=== PATIENT | female | born 1995 | race American Indian/Alaskan Native ===

== ENCOUNTER 2017-05-21 17:01 | Emergency (ER) | payer BC ==
[2017-05-21 17:09] VITALS: BP 123/72
--- NOTE | 2017-05-21 17:27 | Emergency Department Report ---
ED General Adult HPI - General Chief complaint: Urogenital-Female Stated complaint: VAGINAL ACCIDENT Time Seen by Provider: 05/21/17 17:06 Source: patient Mode of arrival: Ambulatory Limitations: No Limitations - History of Present Illness Initial comments: PT c/o being on her menstrual cycle. PT states she did not have a tampon or pad and earlier today, she balled up baby wipes and inserted them into her vagina. PT states she can not get it out. PT c/o vaginal discomfort. PT also states that she needed a spider bite drained before and she was given antibiotics. PT states she never finished the antibiotics and she has had other spots pop up. MD Complaint: vaginal fb -: Sudden, hour(s) Location: genitals Severity scale (0 -10): 0 Improves with: none Worsens with: none Associated Symptoms: rash. denies: fever/chills, loss of appetite, nausea/ vomiting - Related Data Previous Rx's Medication Instructions Recorded Last Taken Type Amoxicillin [Amoxicillin TAB] 875 mg PO BID #20 tablet 03/22/14 Unknown Rx Butalb/Acetamin/Caff 50-325-40 1 each PO Q4H PRN #10 tablet 03/22/14 Unknown Rx [Fioricet] Fluticasone Propionate [Flonase] 2 spray NS QDAY #1 spray.susp 03/22/14 Unknown Rx Ibuprofen [Motrin 600 MG tab] 600 mg PO Q8H PRN #30 tablet 03/22/14 Unknown Rx Allergies Allergy/AdvReac Type Severity Reaction Status Date / Time No Known Allergies Allergy Unverified 03/22/14 15:56 ED Review of Systems ROS: Stated complaint: VAGINAL ACCIDENT Other details as noted in HPI Comment: All other systems reviewed and negative Constitutional: denies: chills, fever Respiratory: denies: cough, shortness of breath Genitourinary: as per HPI. denies: abnormal menses Skin: rash ED Past Medical Hx - Past Medical History Previous Medical History?: No - Surgical History Past Surgical History?: No - Social History Smoking Status: Never Smoker Substance Use Type: None - Medications Home Medications: Home Medications Medication Instructions Recorded Confirmed Last Taken Type Amoxicillin [Amoxicillin TAB] 875 mg PO BID #20 tablet 03/22/14 Unknown Rx Butalb/Acetamin/Caff 50-325-40 1 each PO Q4H PRN #10 tablet 03/22/14 Unknown Rx [Fioricet] Fluticasone Propionate [Flonase] 2 spray NS QDAY #1 spray.susp 03/22/14 Unknown Rx Ibuprofen [Motrin 600 MG tab] 600 mg PO Q8H PRN #30 tablet 03/22/14 Unknown Rx ED Physical Exam - General Limitations: No Limitations General appearance: alert, in no apparent distress - Head Head exam: Present: atraumatic, normocephalic, normal inspection - Eye Eye exam: Present: normal appearance. Absent: conjunctival injection - ENT ENT exam: Present: normal exam, normal external ear exam - Neck Neck exam: Present: normal inspection - Respiratory Respiratory exam: Present: normal lung sounds bilaterally. Absent: respiratory distress, chest wall tenderness - Cardiovascular Cardiovascular Exam: Present: regular rate, normal rhythm, normal heart sounds - GI/Abdominal GI/Abdominal exam: Present: soft. 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 Absent: normal speculum exam Bi-manual exam: Present: normal bi-manual exam. Absent: uterine enlargement, uterine tenderness - Extremities Exam Extremities exam: Present: normal inspection, full ROM - Back Exam Back exam: Present: normal inspection, full ROM - Neurological Exam Neurological exam: Present: alert, oriented X3, normal gait - Psychiatric Psychiatric exam: Present: normal affect, normal mood - Skin Skin exam: Present: warm, dry, intact, other (PT has scars to her abd and brook axilla. pt states those places were risens, no active infection noted. ) ED Course Vital Signs 05/21/17 17:06 Temperature 98.6 F Pulse Rate 78 Respiratory 20 Rate Blood Pressure 123/72 O2 Sat by Pulse 100 Oximetry - Procedure Description Procedures done: vaginal fb removed with metal round forcepts. PT does have vaginal bleeding noted. it appears all of the fb has been removed. PT tolerated the procedure well. without complications - Pulse Oximetry Interpretation Digit-Finger Initial Pulse Oximetry Readin Actions Taken: none ED Medical Decision Making - Differential Diagnosis fb, abscess, Critical care attestation.: If time is entered above; I have spent that time in minutes in the direct care of this critically ill patient, excluding procedure time. ED Disposition Clinical Impression: Hx of abscess of skin and subcutaneous tissue Vaginal foreign body Qualifiers: Encounter type: initial encounter Qualified Code(s): T19.2XXA - Foreign body in vulva and vagina, initial encounter Disposition: TO HOME OR SELFCARE Is pt being admited?: No Does the pt Need Aspirin: No Condition: Stable Instructions: Vaginal Foreign Body (ED), Abscess (ED) Additional Instructions: Wash with OTC Hibiclens No shaving Follow up with FIELD REPRESENTATIVES DIRECTOR Return to ed if worsening or concerns Referrals: PRIMARY CARE, [Primary Care Provider] - 3-5 Days Forms: Work/School Release Form(ED) Time of Disposition: 17:34
== END 2017-05-21 18:05 | disposition home or self-care (01) ==
LOC: ED 17:01
DX: T19.2XXA Foreign body in vulva and vagina, initial encounter (principal); X58.XXXA Exposure to other specified factors, initial encounter; Y93.89 Activity, other specified; Y99.8 Other external cause status; Y92.89 Other specified places as the place of occurrence of the external cause
CPT/HCPCS: 99283

== ENCOUNTER 2017-07-31 10:25 | Emergency (ER) | payer BC ==
[2017-07-31 11:00] VITALS: BP 104/78
[2017-07-31 12:32] LABS: Bacteria,Urine 1+ /HPF (Negative); Bilirubin,Urine NEG (Negative); Blood,Urine SM (Negative); Ketones,Urine NEG (Negative); Leukocyte Esterase,Urine LG (Negative); Mucus,Urine 3+ /HPF; Nitrite,Urine NEG (Negative); Protein,Urine <15 mg/dL mg/dL (Negative); Urobilinogen,Urine < 2.0 mg/dL (<2.0)
[2017-07-31] MEDS ORDERED: ROCEPHIN IM ONE (16:26)
[2017-07-31] MEDS ORDERED: XYLOCAINE 1% MPF 5 mL INFILTRATI ONE (16:26)
[2017-07-31] MEDS ORDERED: ZITHROMAX PO ONE (16:27)
--- NOTE | 2017-07-31 18:31 | Emergency Department Report ---
Entered by AMAURI TRIPATHI, acting as scribe for REGINA SANDERSON PA. ED Female HPI - General Chief complaint: Urogenital-Female Stated complaint: VAG DISCHARGE/IRRITATION Time Seen by Provider: 07/31/17 15:15 Source: patient Mode of arrival: Ambulatory Limitations: No Limitations - History of Present Illness Initial comments: 21 y/o female with a PMHx of genital herpes presents to the ED c/o white, thick vaginal discharge that began last night. Patient reports associated vaginal irritation, but she denies any abdominal pain, nausea, vomiting, dysuria, urinary urgency and frequency, vaginal bleeding, rash, fever, and chills. Patient states that she is currently sexually active with 2 partners without protection. LMP 07/08/2017. NKDA. SERRANO Complaint: vaginal discharge -: Last night Severity: mild Severity scale (0 -10): 0 Consistency: constant Improves with: none Worsens with: none Are you Now?: No Last Menstrual Period: 07/08/17 EDC: 04/14/18 Associated Symptoms: denies other symptoms, vaginal discharge (white thick), other (vaginal irritation). denies: vaginal bleeding, abdominal pain, nausea/ vomiting, fever/chills, headaches, loss of appetite, dysuria, hematuria, rash, seizure, shortness of breath, syncope, weakness - Related Data Sexually active: Yes (2 partners without protection) Previous Rx's Medication Instructions Recorded Last Taken Type Fluticasone Propionate [Flonase] 2 spray NS QDAY #1 spray.susp 03/22/14 Unknown Rx Ibuprofen [Motrin 600 MG tab] 600 mg PO Q8H PRN #30 tablet 03/22/14 Unknown Rx metroNIDAZOLE [Flagyl] 500 mg PO Q12HR #14 tab 05/21/17 Unknown Rx Clotrimazole [Rkxf-Srxztceo-0] 1 applicator VG QHS #1 cream.appl 07/31/17 Unknown Rx Nitrofurantoin Childress/M-Cryst 100 mg PO Q12HR #14 capsule 07/31/17 Unknown Rx [Macrobid CAP] Allergies Allergy/AdvReac Type Severity Reaction Status Date / Time No Known Allergies Allergy Unverified 03/22/14 15:56 ED Review of Systems Comment: All other systems reviewed and negative Constitutional: denies: chills, fever Eyes: denies: eye pain, eye discharge, vision change ENT: denies: ear pain, throat pain Respiratory: denies: cough, orthopnea, shortness of breath, SOB with exertion, SOB at rest, stridor, wheezing Cardiovascular: denies: chest pain, palpitations, dyspnea on exertion, orthopnea , edema, syncope, paroxysmal nocturnal dyspnea Endocrine: no symptoms reported Gastrointestinal: denies: abdominal pain, nausea, vomiting, diarrhea Genitourinary: discharge (white thick). denies: urgency, dysuria, frequency, hematuria, abnormal menses, dyspareunia Musculoskeletal: denies: back pain, joint swelling, arthralgia Skin: denies: rash, lesions Neurological: denies: headache, weakness, numbness, paresthesias Psychiatric: denies: anxiety, depression Hematological/Lymphatic: denies: easy bleeding, easy bruising ED Past Medical Hx - Past Medical History Previous Medical History?: Yes Additional medical history: Genital Herpes - Surgical History Past Surgical History?: No - Family History Family history: no significant - Social History Smoking Status: Current Every Day Smoker Substance Use Type: None - Medications Home Medications: Home Medications Medication Instructions Recorded Confirmed Last Taken Type Fluticasone Propionate [Flonase] 2 spray NS QDAY #1 spray.susp 03/22/14 Unknown Rx Ibuprofen [Motrin 600 MG tab] 600 mg PO Q8H PRN #30 tablet 03/22/14 Unknown Rx metroNIDAZOLE [Flagyl] 500 mg PO Q12HR #14 tab 05/21/17 Unknown Rx Clotrimazole [Wcfw-Zvornpwn-9] 1 applicator VG QHS #1 cream.appl 07/31/17 Unknown Rx Nitrofurantoin Childress/M-Cryst 100 mg PO Q12HR #14 capsule 07/31/17 Unknown Rx [Macrobid CAP] ED Physical Exam - General Limitations: No Limitations General appearance: alert, in no apparent distress - Head Head exam: Present: atraumatic, normocephalic - Eye Eye exam: Present: normal appearance, PERRL, EOMI Pupils: Present: normal accommodation - ENT ENT exam: Present: normal exam, mucous membranes moist, normal external ear exam - Neck Neck exam: Present: normal inspection, full ROM. Absent: tenderness, meningismus, lymphadenopathy - Respiratory Respiratory exam: Present: normal lung sounds bilaterally. Absent: respiratory distress, wheezes, rales, rhonchi, stridor, accessory muscle use, decreased breath sounds - Cardiovascular Cardiovascular Exam: Present: regular rate, normal rhythm, normal heart sounds. Absent: systolic murmur, diastolic murmur - GI/Abdominal GI/Abdominal exam: Present: soft, normal bowel sounds. Absent: distended, tenderness, guarding, rebound, rigid - Extremities Exam Extremities exam: Present: normal inspection, full ROM, normal capillary refill - Back Exam Back exam: Present: normal inspection, full ROM. Absent: tenderness, CVA tenderness (R), CVA tenderness (L) - Neurological Exam Neurological exam: Present: alert, oriented X3, normal gait - Psychiatric Psychiatric exam: Present: normal affect, normal mood - Skin Skin exam: Present: warm, dry, intact. Absent: rash ED Course Vital Signs 07/31/17 10:57 Temperature 99.1 F Pulse Rate 70 Respiratory 16 Rate Blood Pressure 104/78 O2 Sat by Pulse 100 Oximetry ED Medical Decision Making - Medical Decision Making A/P: Vaginal discharge, cervicitis 1-treatment with azithromycin and ceftriaxone 2-GC cultures sent 3-wet prep shows no Trichomonas or yeast no beefy ED Disposition Clinical Impression: Vaginal discharge Disposition: DC-01 TO HOME OR SELFCARE Is pt being admited?: No Does the pt Need Aspirin: No Condition: Stable Instructions: Cervicitis (ED) Prescriptions: Clotrimazole [Tqbi-Ayosqerf-2] 1 applicator VG QHS #1 cream.appl Nitrofurantoin Childress/M-Cryst [Macrobid CAP] 100 mg PO Q12HR #14 capsule Referrals: [facility] [Provider Group] - 3-5 Days Forms: Work/School Release Form(ED) Time of Disposition: 16:36 This documentation as recorded by the DEUCE robertson JASMINE,accurately reflects the service I personally performed and the decisions made by me,REGINA SANDERSON PA.
== END 2017-07-31 17:08 | disposition home or self-care (01) ==
LOC: ED 10:25
DX: N89.8 Other specified noninflammatory disorders of vagina (principal); F17.200 Nicotine dependence, unspecified, uncomplicated
CPT/HCPCS: 81001; 81025; 87210; 87591; 96372; 99283; J0696

== ENCOUNTER 2018-04-20 21:57 | Emergency (ER) | payer BC ==
[2018-04-20 23:10] VITALS: BP 118/64
[2018-04-20 23:56] LABS: Bacteria,Urine 4+ /HPF (Negative); Bilirubin,Urine NEG (Negative); Blood,Urine LG (Negative); Color,Urine Yellow (Yellow); HCG Qualitative,Urine Negative (Negative); Mucus,Urine 1+ /HPF; RBC,Urine > 182.0 /HPF (0.0-6.0); Urobilinogen,Urine < 2.0 mg/dL (<2.0)
[2018-04-21] MEDS ORDERED: ZITHROMAX PO ONE (00:57)
[2018-04-21] MEDS ORDERED: FLAGYL PO ONE ×2 (00:57→00:58)
[2018-04-21] MEDS ORDERED: ULTRAM PO ONE (00:57)
[2018-04-21] MEDS ORDERED: XYLOCAINE 1% MPF 5 mL INFILTRATI ONE (00:57)
[2018-04-21] MEDS ORDERED: ROCEPHIN IM ONE (00:57)
--- NOTE | 2018-04-21 02:34 | Emergency Department Report ---
HPI - General Chief Complaint: Urogenital-Female Time Seen by Provider: 04/21/18 00:53 - HPI HPI: The patient's 22-year-old female who presents for evaluation of abdominal pain. The patient reports left lower quadrant extremity with abdominal pain for the past one to 2 days, cramping in quality, mild in severity, exacerbated with urination. The patient denies fever, chills, night sweats, diarrhea, blood in the stool, dark tarry stool, hematuria, flank pain, genital discharge, inability to pass flatus. ED Past Medical Hx - Past Medical History Previous Medical History?: No Additional medical history: Genital Herpes - Surgical History Past Surgical History?: No - Social History Smoking Status: Never Smoker - Medications Home Medications: Home Medications Medication Instructions Recorded Confirmed Last Taken Type Fluticasone Propionate [Flonase] 2 spray NS QDAY #1 spray.susp 03/22/14 Unknown Rx Ibuprofen [Motrin 600 MG tab] 600 mg PO Q8H PRN #30 tablet 03/22/14 Unknown Rx metroNIDAZOLE [Flagyl] 500 mg PO Q12HR #14 tab 05/21/17 Unknown Rx Clotrimazole [Heeh-Ywylsmxu-4] 1 applicator VG QHS #1 cream.appl 07/31/17 Unknown Rx Nitrofurantoin Cassia/M-Cryst 100 mg PO Q12HR #14 capsule 07/31/17 Unknown Rx [Macrobid CAP] Fluconazole [Diflucan TAB] 150 mg PO ONCE #1 tablet 04/21/18 Unknown Rx Ibuprofen [Motrin] 800 mg PO Q8HR PRN #15 tablet 04/21/18 Unknown Rx metroNIDAZOLE [Flagyl] 500 mg PO Q12HR #14 tab 04/21/18 Unknown Rx traMADol [Ultram 50 MG tab] 50 mg PO Q6HR PRN #15 tablet 04/21/18 Unknown Rx ED Review of Systems ROS: Stated complaint: VAG D/C WITH ODOR Other details as noted in HPI Constitutional: denies: fever ENT: denies: throat or neck pain Respiratory: denies: cough, shortness of breath Cardiovascular: denies: chest pain Endocrine: denies unexplained weight loss or gain Gastrointestinal: reports: abdominal pain, nausea Genitourinary: reports: dysuria Musculoskeletal: denies: leg swelling Skin: denies: rash Neurological: denies: headache Hematological/Lymphatic: denies: easy bleeding or easy bruising Psych: denies sadness or hopelessness Physical Exam - Physical Exam Vital Signs: Vital Signs 04/20/18 22:53 Temperature 98.4 F Pulse Rate 84 Respiratory 18 Rate Blood Pressure 118/64 O2 Sat by Pulse 100 Oximetry Physical Exam: General: well-nourished, well-developed, no acute distress Head: Normocephalic, atraumatic Eyes: normal sclera ENT: Mucous membranes are pink and moist Neck: trachea midline, neck supple, No neck stiffness, no cervical adenopathy Respiratory: Breath sounds equal bilaterally, no wheezing, rales, or rhonchi Cardio: S1 and S2 present, no murmurs, rubs, gallops, capillary refill is brisk Abdomen: Normoactive bowel sounds, soft abdomen, suprapubic tenderness to palpation present, no rigidity, no guarding or rebound tenderness Musc: No pitting edema Skin: No rash Neuro: no facial drooping, normal speech Psych: Normal affect ED Course Vital Signs 04/20/18 22:53 Temperature 98.4 F Pulse Rate 84 Respiratory 18 Rate Blood Pressure 118/64 O2 Sat by Pulse 100 Oximetry ED Medical Decision Making - Medical Decision Making The patient was seen and examined by myself. The patient is given pain medicine. Urinalysis reveals elevated urine wbc with positive leukocyte esterase, consistent with acute urinary tract infection. UA was negative for preg. The patient was given antibiotic for treatment of cervicitis and UTI. The patient was reevaluated and reported that their symptoms were markedly improved. The patient is stable for discharge with outpatient follow-up. The patient is given follow-up and return instructions. The patient expressed understanding and agreed with the plan. The patient is discharged in stable condition. Critical care attestation.: If time is entered above; I have spent that time in minutes in the direct care of this critically ill patient, excluding procedure time. ED Disposition Clinical Impression: Acute abdominal pain in left lower quadrant, Acute lower UTI (urinary tract infection), Exposure to STD Disposition: - TO HOME OR SELFCARE Is pt being admited?: No Does the pt Need Aspirin: No Condition: Stable Instructions: Urinary Tract Infection in Women (ED), Safe Sex (ED), Sexually Transmitted Diseases (ED), Chlamydia Infection (ED), Trichomoniasis (ED), Cervicitis (ED) Referrals: PRIMARY CARE, [Primary Care Provider] - 3-5 Days DAR RONQUILLO MD [Staff Physician] - 3-5 Days Forms: Work/School Release Form(ED) Time of Disposition: 01:15
== END 2018-04-21 01:55 | disposition home or self-care (01) ==
LOC: ED 21:57
DX: N39.0 Urinary tract infection, site not specified (principal); Z20.2 Contact with and (suspected) exposure to infections with a predominantly sexual mode of transmission
CPT/HCPCS: 81001; 81025; 96372; 99283; J0696

== ENCOUNTER 2019-10-15 14:30 | Emergency (ER) | payer BC ==
[2019-10-15 14:37] VITALS: BP 109/58
[2019-10-15 15:47] LABS: Bilirubin,Urine NEG (Negative); Blood,Urine SM (Negative); Color,Urine Yellow (Yellow); Mucus,Urine 2+ /HPF; Protein,Urine <15 mg/dL mg/dL (Negative); Urobilinogen,Urine < 2.0 mg/dL (<2.0)
[2019-10-15 15:48] LABS: HCG Qualitative,Urine Positive (Negative)
--- NOTE | 2019-10-15 16:25 | Emergency Department Report ---
<BURT NARANJO - Last Filed: 10/15/19 17:53> ED Female HPI - General Chief complaint: Abdominal Pain Stated complaint: /CRAMPING Time Seen by Provider: 10/15/19 16:10 Source: patient Mode of arrival: Ambulatory Limitations: No Limitations - History of Present Illness Initial comments: Chief complaint "I'm . I have been cramping. Afshin is a very pleasant 24-year-old who presents with positive Brixey test. Last menstrual period 09/10/2019. She's had in the minimal abdominal cramping. No vaginal bleeding. Mild cramps. Positive home urine test. -: Gradual, week(s) (several) Severity: mild Severity scale (0 -10): 5 Quality: cramping Consistency: intermittent, now resolved Improves with: none Worsens with: none Are you Now?: Yes Last Menstrual Period: 09/10/19 EDC: 06/16/20 - Related Data Previous Rx's Medication Instructions Recorded Last Taken Type Fluticasone Propionate [Flonase] 2 spray NS QDAY #1 spray.susp 03/22/14 Unknown Rx Ibuprofen [Motrin 600 MG tab] 600 mg PO Q8H PRN #30 tablet 03/22/14 Unknown Rx metroNIDAZOLE [Flagyl] 500 mg PO Q12HR #14 tab 05/21/17 Unknown Rx Clotrimazole [Mlrb-Ecjsxexh-6] 1 applicator VG QHS #1 cream.appl 07/31/17 Unknown Rx Nitrofurantoin Thurston/M-Cryst 100 mg PO Q12HR #14 capsule 07/31/17 Unknown Rx [Macrobid CAP] Fluconazole [Diflucan TAB] 150 mg PO ONCE #1 tablet 04/21/18 Unknown Rx Ibuprofen [Motrin] 800 mg PO Q8HR PRN #15 tablet 04/21/18 Unknown Rx metroNIDAZOLE [Flagyl] 500 mg PO Q12HR #14 tab 04/21/18 Unknown Rx traMADoL [Ultram 50 MG tab] 50 mg PO Q6HR PRN #15 tablet 04/21/18 Unknown Rx Allergies Allergy/AdvReac Type Severity Reaction Status Date / Time No Known Allergies Allergy Unverified 03/22/14 15:56 ED Review of Systems Comment: All other systems reviewed and negative Constitutional: denies: fever, malaise Gastrointestinal: abdominal pain. denies: nausea, vomiting, diarrhea ED Past Medical Hx - Past Medical History Previous Medical History?: Yes Additional medical history: Genital Herpes - Surgical History Past Surgical History?: No - Social History Smoking Status: Never Smoker Substance Use Type: None - Medications Home Medications: Home Medications Medication Instructions Recorded Confirmed Last Taken Type Fluticasone Propionate [Flonase] 2 spray NS QDAY #1 spray.susp 03/22/14 Unknown Rx Ibuprofen [Motrin 600 MG tab] 600 mg PO Q8H PRN #30 tablet 03/22/14 Unknown Rx metroNIDAZOLE [Flagyl] 500 mg PO Q12HR #14 tab 05/21/17 Unknown Rx Clotrimazole [Elbq-Jfrarjpc-1] 1 applicator VG QHS #1 cream.appl 07/31/17 Unknown Rx Nitrofurantoin Thurston/M-Cryst 100 mg PO Q12HR #14 capsule 07/31/17 Unknown Rx [Macrobid CAP] Fluconazole [Diflucan TAB] 150 mg PO ONCE #1 tablet 04/21/18 Unknown Rx Ibuprofen [Motrin] 800 mg PO Q8HR PRN #15 tablet 04/21/18 Unknown Rx metroNIDAZOLE [Flagyl] 500 mg PO Q12HR #14 tab 04/21/18 Unknown Rx traMADoL [Ultram 50 MG tab] 50 mg PO Q6HR PRN #15 tablet 04/21/18 Unknown Rx ED Physical Exam - General Limitations: No Limitations General appearance: alert, in no apparent distress - Head Head exam: Present: atraumatic, normocephalic - Eye Eye exam: Present: normal appearance - ENT ENT exam: Present: mucous membranes moist - Neck Neck exam: Present: normal inspection, full ROM - Respiratory Respiratory exam: Present: normal lung sounds bilaterally. Absent: respiratory distress, wheezes, rales, rhonchi - Cardiovascular Cardiovascular Exam: Present: regular rate, normal rhythm, normal heart sounds. Absent: systolic murmur, diastolic murmur, rubs, gallop - GI/Abdominal GI/Abdominal exam: Present: soft, normal bowel sounds. Absent: distended, tenderness, guarding, rebound - Extremities Exam Extremities exam: Present: normal inspection - Back Exam Back exam: Present: normal inspection - Neurological Exam Neurological exam: Present: alert, oriented X3 - Psychiatric Psychiatric exam: Present: normal affect, normal mood - Skin Skin exam: Present: warm, dry, intact, normal color. Absent: rash ED Medical Decision Making - Lab Data Laboratory Results - last 24 hr 10/15/19 10/15/19 10/15/19 16:15 16:15 Unknown HCG, Quant 1613 H Urine Color Yellow Urine Turbidity Clear Urine pH 6.0 Ur Specific [place] 1.027 Urine Protein <15 mg/dl Urine Glucose (UA) Neg Urine Ketones 20 Urine Blood Sm Urine Nitrite Neg Urine Bilirubin Neg Urine Urobilinogen < 2.0 Ur Leukocyte Esterase Neg Urine WBC (Auto) 2.0 Urine RBC (Auto) 10.0 U Epithel Cells (Auto) 5.0 Urine Mucus 2+ Urine HCG, Qual Positive A Blood Type A POSITIVE Ord Rhogam Gestat Weeks Rh pos - Radiology Data Radiology results: report reviewed - Medical Decision Making According to dates, Afshin is 5 weeks 0 days which corresponds to hCG level and ultrasound findings. She understands to follow-up outpatient with [facility]. If She unable to follow within the next week she is to return to the emergency department for repeat hCG and possible ultrasound. Afshin Blood Type O positive ED Disposition Clinical Impression: Early stage of , Abdominal pain affecting Disposition: DC-01 TO HOME OR SELFCARE Is pt being admited?: No Does the pt Need Aspirin: No Condition: Stable Additional Instructions: Please see an [facility] PADDER within the next week. If you develop vaginal bleeding or persistent abdominal pain, please return immediately to the emergency department. You will need to have a repeat ultrasound and repeat HCG ( hormone) blood test within the next week. Referrals: HALEY HEALY MD [Staff Physician] - 3-5 Days Forms: Work/School Release Form(ED) <CHRISTY DE JESUS - Last Filed: 10/18/19 11:12> ED Review of Systems ROS: Stated complaint: /CRAMPING Other details as noted in HPI ED Course Vital Signs 10/15/19 14:35 Temperature 98.5 F Pulse Rate 98 H Respiratory 18 Rate Blood Pressure 109/58 O2 Sat by Pulse 100 Oximetry ED Medical Decision Making - Radiology Data Radiology results: report reviewed, image reviewed ULTRASOUND OBSTETRIC INDICATION: with abdominal and pelvic pain. TECHNIQUE: Transvaginal. COMPARISON: None available. FINDINGS: GESTATIONAL SAC: Well-defined oval shape and intrauterine in location. The mean sac diameter is 0.51, consistent with an estimated age of 5 weeks, 2 days. YOLK SAC: No significant abnormality. EMBRYO/FETUS: None seen. ADNEXA: A 2.0 x 1.5 cm left ovarian cyst is noted. The right ovary is unremarkable. Expected color flow is seen in both ovaries. FREE FLUID: None seen. ADDITIONAL FINDINGS: None. IMPRESSION: Early intrauterine as above without identification of a fetus. Close clinical and imaging follow-up is recommended. Signer Name: Alvino Parisi MD Signed: 10/15/2019 6:10 PM Workstation Name: [id number] Transcribed By: BRUCE Dictated By: Alvino Parisi MD Electronically Authenticated By: Alvino Parisi MD Signed Date/Time: 10/15/19 181 - Medical Decision Making Ultrasound findings show early intrauterine . Patient states she has a follow-up appointment with [facility] tomorrow. I discussed findings with the patient and discussed with her to make sure she follows up Patient is in no acute distress. She understands instructions and will follow- up with her BACK PADDER tomorrow. She was discharged with instructions. I did discuss with her that his symptoms worsen or she has new worsening symptoms she will return to the ED Critical care attestation.: If time is entered above; I have spent that time in minutes in the direct care of this critically ill patient, excluding procedure time.
--- NOTE | 2019-10-15 18:15 | Ultrasound Report ---
ULTRASOUND OBSTETRIC INDICATION: with abdominal and pelvic pain. TECHNIQUE: Transvaginal. COMPARISON: None available. FINDINGS: GESTATIONAL SAC: Well-defined oval shape and intrauterine in location. The mean sac diameter is 0.51, consistent with an estimated age of 5 weeks, 2 days. YOLK SAC: No significant abnormality. EMBRYO/FETUS: None seen. ADNEXA: A 2.0 x 1.5 cm left ovarian cyst is noted. The right ovary is unremarkable. Expected color fl ow is seen in both ovaries. FREE FLUID: None seen. ADDITIONAL FINDINGS: None. IMPRESSION: Early intrauterine as above without identification of a fetus. Close clinical and imaging f ollow-up is recommended. Signer Name: Alvino Parisi MD Signed: 10/15/2019 6:10 PM Workstation Name: [id number]
== END 2019-10-15 18:31 | disposition home or self-care (01) ==
LOC: ED 14:30
DX: O26.891 Other specified pregnancy related conditions, first trimester (principal); Z3A.01 Less than 8 weeks gestation of pregnancy; Z79.899 Other long term (current) drug therapy; Z79.1 Long term (current) use of non-steroidal anti-inflammatories (NSAID)
CPT/HCPCS: 36415; 76801; 76817; 81001; 81025; 84702; 86900; 86901

== ENCOUNTER 2019-11-03 09:43 | Emergency (ER) | payer BC ==
[2019-11-03 10:05] VITALS: BP 121/47
--- NOTE | 2019-11-03 11:17 | Emergency Department Report ---
Minor Respiratory - HPI Chief Complaint: Earache Stated Complaint: EARS ARE CLOGGED Time Seen by Provider: 11/03/19 11:04 Duration: 1 week Minor Respiratory: Yes Rhinorrhea ( congestion), Yes Able to Tolerate Fluids, Yes Cough (dry cough), No Sore Throat, No Ear Pain (clogged ear sensation), No Sick Contacts, No Hemoptysis, No Chest Pain, No Shortness of Breath, No Fever Other History: A 24-year-old female here for clogged ear sensation and cold symptoms. She denies any pain at present. Denies any shortness of breath. She says this been going on for over week and [id number] medications not helping. Denies any other symptoms ED Review of Systems ROS: Stated complaint: EARS ARE CLOGGED Other details as noted in HPI Constitutional: denies: chills, fever Eyes: denies: eye discharge ENT: congestion, other (clogged ear sensation). denies: ear pain, throat pain Respiratory: cough. denies: shortness of breath, SOB with exertion, SOB at rest, wheezing Cardiovascular: denies: chest pain, palpitations, edema, syncope Gastrointestinal: denies: nausea, vomiting Musculoskeletal: denies: back pain, arthralgia Skin: denies: rash Neurological: denies: headache ED Past Medical Hx - Past Medical History Previous Medical History?: Yes Additional medical history: Genital Herpes - Surgical History Past Surgical History?: No - Family History Family history: hypertension - Social History Smoking Status: Never Smoker Substance Use Type: None - Medications Home Medications: Home Medications Medication Instructions Recorded Confirmed Last Taken Type Fluticasone Propionate [Flonase] 2 spray NS QDAY #1 spray.susp 03/22/14 Unknown Rx Ibuprofen [Motrin 600 MG tab] 600 mg PO Q8H PRN #30 tablet 03/22/14 Unknown Rx metroNIDAZOLE [Flagyl] 500 mg PO Q12HR #14 tab 05/21/17 Unknown Rx Clotrimazole [Cffw-Kgpiecyb-8] 1 applicator VG QHS #1 cream.appl 07/31/17 Unknown Rx Nitrofurantoin [place]/M-Cryst 100 mg PO Q12HR #14 capsule 07/31/17 Unknown Rx [Macrobid CAP] Fluconazole [Diflucan TAB] 150 mg PO ONCE #1 tablet 05/21/18 Unknown Rx Ibuprofen [Motrin] 800 mg PO Q8HR PRN #15 tablet 04/21/18 Unknown Rx metroNIDAZOLE [Flagyl] 500 mg PO Q12HR #14 tab 04/21/18 Unknown Rx traMADoL [Ultram 50 MG tab] 50 mg PO Q6HR PRN #15 tablet 04/21/18 Unknown Rx Amoxicillin [Amoxicillin TAB] 875 mg PO BID 10 Days #20 tablet 11/03/19 Unknown Rx Cetirizine HCl [ZyrTEC] 10 mg PO QAM 14 Days #14 capsule 11/03/19 Unknown Rx Fluticasone [Flonase] 1 spray NS QDAY 14 Days #1 bottle 11/03/19 Unknown Rx Prednisone [predniSONE 5 mg (6-Day 5 mg PO .TAPER 6 Days #1 tab.ds.pk 11/03/19 Unknown Rx Pack, 21 Tabs)] Minor Respiratory Exam - Exam General: Vital signs noted. No distress. Alert and acting appropriately. 24-year-old female well-nourished well-developed in no acute distress. HEENT: Yes Moist Mucous Membranes (uvula midline and oral airways patent), Yes Rhinorrhea (nasal mucosa erythema with congestion.), Yes Frontal Tenderness (tender to palpate), No Pharyngeal Erythema, No Pharyngeal Exudates, No Conjuctival Injection, No Maxillary Tenderness Ear: Neither TM Bulge (middle ear effusion), Neither TM Erythema, Neither EAC Pain, Neither EAC Discharge Neck: Yes Supple (full range of motion), No Adenopathy Lungs: Yes Good Air Exchange, Yes Cough (dry cough), No Wheezes, No Ronchi, No Stridor, No Labored Respirations, No Retractions, No Use of Accessory Muscles, No Other Abnormal Lung Sounds Heart: Yes Regular, No Murmur Abdomen: Yes Normal Bowel Sounds (quadrants), No Tenderness (all quadrants), No Peritoneal Signs Skin: No Rash, No Edema Neurologic: Alert and oriented, no deficits. Musculoskeletal: Unremarkable. ED Course Vital Signs 11/03/19 10:03 Temperature 98.7 F Pulse Rate 94 H Respiratory 18 Rate Blood Pressure 121/47 O2 Sat by Pulse 100 Oximetry - Reevaluation(s) Reevaluation #1: 11/03/19 12:58 She is stable throughout ED course. ED Medical Decision Making - Medical Decision Making This is a 24-year-old female here for cough and cold symptoms and found to have sinusitis and cough. Patient is stable in no acute distress that she has no pain. Patient discharged home in stable condition with prescription for amoxic illin, as well as Jone Dosepak, Flonase and Zyrtec. She is to follow up with her primary care physician in 3 days. She was undescended diagnosis: Medication and treatment plan and discharged home in stable condition Critical care attestation.: If time is entered above; I have spent that time in minutes in the direct care of this critically ill patient, excluding procedure time. ED Disposition Clinical Impression: Cough in adult Sinusitis, acute Qualifiers: Sinusitis location: frontal Recurrence: non-recurrent Qualified Code(s): J01.10 - Acute frontal sinusitis, unspecified Disposition: - TO HOME OR SELFCARE Is pt being admited?: No Does the pt Need Aspirin: No Condition: Stable Instructions: Sinusitis (ED), Acute Cough (ED) Additional Instructions: Increasing fluid intake. Take Medication as prescribed Follow up with her primary care doctor in 3 days If you condition worsens, return to the emergency room Referrals: LIZZIE GONZALEZ MD [Primary Care Provider] - 11/05/19 Forms: Work/School Release Form(ED)
== END 2019-11-03 13:22 | disposition home or self-care (01) ==
LOC: ED 09:43
DX: J01.10 Acute frontal sinusitis, unspecified (principal); Z79.899 Other long term (current) drug therapy
CPT/HCPCS: 99282

== ENCOUNTER 2020-05-28 23:22 | Inpatient (IN) | payer BC, OTHER ==
[2020-05-29 01:25] LABS: Hematocrit 28.8 % (30.3-42.9); Hemoglobin 9.1 gm/dl (10.1-14.3); Mean Corpuscular HGB Conc 32 % (30-34); Mean Corpuscular Volume 81 fl (79-97); Platelet Count 194 K/mm3 (140-440); Red Blood Count 3.55 M/mm3 (3.65-5.03); Red Cell Distribution Width 15.9 % (13.2-15.2)
[2020-05-29 01:46] LABS: Alanine Aminotransferase 8 units/L (7-56)
[2020-05-29 02:29] LABS: Creatinine,Urine 186.5 mg/dL (0.1-20.0); Protein/Creatinine Ratio,Urine 0.99
[2020-05-29 02:34] LABS: Bilirubin,Urine NEG (Negative); Blood,Urine NEG (Negative); Color,Urine Yellow (Yellow); Mucus,Urine FEW /HPF; RBC,Urine < 1.0 /HPF (0.0-6.0); Urobilinogen,Urine < 2.0 mg/dL (<2.0)
[2020-05-29] MEDS ORDERED: TERBUTALINE 1 MG/1 ML INJ IVP PRN (03:35)
[2020-05-29] MEDS ORDERED: NALOXONE 0.4 MG/1 ML INJ IV PRN (03:35)
[2020-05-29] MEDS ORDERED: MINERAL OIL 30 ML ORAL LIQD PO PRN (03:35)
[2020-05-29] MEDS ORDERED: ONDANSETRON 4 MG/2 ML INJ IV PRN (03:35)
[2020-05-29] MEDS ORDERED: fentaNYL 100 MCG/2 ML INJ IV PRN (03:35)
[2020-05-29] MEDS ORDERED: DINOPROSTONE 10 MG VAG SUPP VG ONE (03:35)
[2020-05-29] MEDS ORDERED: LIDOCAINE (2%) 20 MG/1 ML VIAL 20 ML MDV INFILTRATI ONE (03:35)
[2020-05-29] MEDS ORDERED: PROMETHAZINE 25 MG TAB PO PRN (03:35)
[2020-05-29] MEDS ORDERED: BUTORPHANOL 2 MG/1 ML INJ IV PRN ×2 (03:35)
[2020-05-29] MEDS ORDERED: ePHEDrine SULFATE 50 MG/1 ML INJ IV PRN (03:35)
[2020-05-29] MEDS ORDERED: TERBUTALINE 1 MG/1 ML INJ SUB-Q PRN (03:35)
[2020-05-29] MEDS ORDERED: LACTATED RINGERS 1,000 ML IV SCH ×2 (04:00)
[2020-05-29] MEDS ORDERED: OXYTOCIN 20 UNIT/1000ML DRIP 20 UNITS/1,000 ML BAG IV SCH (04:00)
[2020-05-29 04:10] LABS: Uric Acid 5.3 mg/dL (3.5-7.6)
[2020-05-29 05:37] VITALS: BP 141/95
--- NOTE | 2020-05-29 11:17 | History and Physical Report ---
History of Present Illness Date of examination: 05/29/20 Date of admission: 05/29/20 03:35 Chief complaint: Cramping History of present illness: Pt is a 24 yo at 37w3d EGA who presents reporting uterine cramping. She denies MCMANUS/scotomata/RUQ pain. In triage, her BP was noted to be mild range and normal (initial BP severe range). She reports positive movement and denies LOF or vaginal bleeding. She does report symptoms of HSV prodrome, similar to previous outbreaks she has had. She has not been consistently taking Valtrex as prescribed. Her has been complicated by obesity. Past History Past Medical History: other (obesity) AUTOMATION QA LEAD History: herpes - Obstetrical History Expected Date of Delivery: 06/16/20 Actual Gestation: 37 Week(s) 3 Day(s) : 1 Para: 0 Number of Living Children: 0 Medications and Allergies Allergies Allergy/AdvReac Type Severity Reaction Status Date / Time No Known Allergies Allergy Verified 11/03/19 09:44 Home Medications Medication Instructions Recorded Confirmed Last Taken Type Fluticasone Propionate [Flonase] 2 spray NS QDAY #1 spray.susp 03/22/14 Unknown Rx Ibuprofen [Motrin 600 MG tab] 600 mg PO Q8H PRN #30 tablet 03/22/14 Unknown Rx metroNIDAZOLE [Flagyl] 500 mg PO Q12HR #14 tab 05/21/17 Unknown Rx Clotrimazole [Wnri-Cudsaipf-1] 1 applicator VG QHS #1 cream.appl 07/31/17 Unknown Rx Nitrofurantoin [place]/M-Cryst 100 mg PO Q12HR #14 capsule 07/31/17 Unknown Rx [Macrobid CAP] Fluconazole (Nf) [Diflucan TAB] 150 mg PO ONCE #1 tablet 04/21/18 Unknown Rx Ibuprofen [Motrin] 800 mg PO Q8HR PRN #15 tablet 04/21/18 Unknown Rx metroNIDAZOLE [Flagyl] 500 mg PO Q12HR #14 tab 04/21/18 Unknown Rx traMADoL [Ultram 50 MG tab] 50 mg PO Q6HR PRN #15 tablet 04/21/18 Unknown Rx Amoxicillin [Amoxicillin TAB] 875 mg PO BID 10 Days #20 tablet 11/03/19 Unknown Rx Cetirizine HCl [ZyrTEC] 10 mg PO QAM 14 Days #14 capsule 12/03/19 Unknown Rx Fluticasone [Flonase] 1 spray NS QDAY 14 Days #1 bottle 11/03/19 Unknown Rx Prednisone [predniSONE 5 mg (6-Day 5 mg PO .TAPER 6 Days #1 tab.ds.pk 11/03/19 Unknown Rx Pack, 21 Tabs)] Blood Pressure Test Kit-Wrist 1 each MC TID #1 kit 05/29/20 Unknown Rx [Caretouch Wrist Bp Monitor] Active Meds: Active Medications Butorphanol Tartrate (Stadol) 1 mg IV Q2H PRN PRN Reason: Pain, Moderate(4-6) LABOR PAIN Butorphanol Tartrate (Stadol) 2 mg IV Q2H PRN PRN Reason: Pain , Severe (7-10) Ephedrine Sulfate (Ephedrine Sulfate) 10 mg IV Q2M PRN PRN Reason: Hypotension Fentanyl (Sublimaze) 100 mcg IV Q2H PRN PRN Reason: Pain,Severe (7-10) LABOR PAIN Oxytocin/Sodium Chloride (Pitocin/Ns 20 Unit/1000ml Drip) 20 units in 1,000 mls @ 125 mls/hr IV DIRECT ROGER Lactated Ringer's (Lactated Ringers) 1,000 mls @ 125 mls/hr IV DIRECT ROGER Ampicillin Sodium (Ampicillin/Ns 2 Gm/100 Ml) 2 gm in 100 mls @ 100 mls/hr IV ONCE ONE; Protocol Stop: 05/29/20 15:59 Ampicillin Sodium (Ampicillin/Ns 1 Gm/50 Ml) 1 gm in 50 mls @ 100 mls/hr IV Q4HR ROGER; Protocol Mineral Oil (Mineral Oil) 30 ml PO QHS PRN PRN Reason: Constipation Naloxone HCl (Naloxone) 0.1 mg IV Q2MIN PRN PRN Reason: Res Rate </= 8 or 02 SAT < 92% Ondansetron HCl (Zofran) 4 mg IV Q8H PRN PRN Reason: Nausea And Vomiting Promethazine HCl (Phenergan) 25 mg PO Q6H PRN PRN Reason: Nausea And Vomiting Terbutaline Sulfate (Brethine) 0.25 mg SUB-Q ONCE PRN PRN Reason: Hyperstimulation/Hypertonicity Terbutaline Sulfate (Brethine) 0.25 mg IVP ONCE PRN PRN Reason: Hyperstimulation/Hypertonicity Review of Systems All systems: negative Eyes: no blurred vision Cardiovascular: no edema Genitourinary: genital sores (prodomal symptoms), contractions (occasional cramping), no vaginal bleeding, no vaginal discharge, no leakage of fluid Neurological: no headaches - Vital Signs Vital signs: Vital Signs Temp Pulse Resp BP Pulse Ox 98.4 F 78 18 163/94 99 05/29/20 00:23 05/29/20 00:23 05/29/20 00:23 05/29/20 00:23 05/29/20 00:23 Temp Pulse Resp BP Pulse Ox 97.7 F 73 18 141/95 98 05/29/20 05:01 05/29/20 05:36 05/29/20 00:23 05/29/20 05:36 05/29/20 03:02 - Physical Exam Lungs: Positive: Normal air movement Abdomen: Positive: soft Uterus: Positive: enlarged (gravid) - Obstetrical FHR: category 1 Uterine Contraction Monitor Mode: External Cervical Dilatation: 0 Results Result Diagrams: 05/29/20 01:16 05/29/20 01:16 Abnormal lab results 05/29/20 05/29/20 05/29/20 Range/Units 01:16 01:16 01:45 RBC 3.55 L (3.65-5.03) M/mm3 Hgb 9.1 L (10.1-14.3) gm/dl Hct 28.8 L (30.3-42.9) % MCH 26 L (28-32) pg RDW 15.9 H (13.2-15.2) % Creatinine 0.5 L (0.7-1.2) mg/dL Lactate Dehydrogenase 267 H (91-180) units/L Urine Creatinine 186.5 H (0.1-20.0) mg/dL Urine Total Protein 184 H (5-11.8) mg/dL All other labs normal. Assessment and Plan A: 24 yo at 37w3d EGA Preeclampsia with mild features HSV prodrome GBS negative Membranes intact Obesity P: This CNM recommends delivery ENRIQUE due to preeclampsia at term. Pt would require a due to HSV prodrome. Discussed with Dr. León, who elects to have pt collect 24 hour urine at home and present to [facility] office in 1 day to check BP. Take Valtrex 500mg BID. Pt to be discharged with rx for BP cuff. Check BP TID. Present to hospital for SBP >159 and/or DBP >109, MCMANUS, scotomata, RUQ pain, facial or upper extremity edema.
[2020-05-29] MEDS ORDERED: AMPICILLIN/NS 2 GM/100 ML 2 GM/100 ML BAG IV ONE (15:00)
[2020-05-29] MEDS ORDERED: AMPICILLIN/NS 1 GM/50 ML 1 GM/50 ML BAG IV SCH (19:00)
== END 2020-05-29 08:30 | disposition home or self-care (01) | DRG 832 ==
LOC: TRG 23:22 → APU 23:36 → LD 05-29 03:35 → TRG 05-29 03:35
PROVIDERS: ADMIT Obstetrics & Gynecology; ATTEND Obstetrics & Gynecology
DX: O98.513 Other viral diseases complicating pregnancy, third trimester (principal); B00.89 Other herpesviral infection; O14.03 Mild to moderate pre-eclampsia, third trimester; O99.213 Obesity complicating pregnancy, third trimester; Z3A.37 37 weeks gestation of pregnancy; Z68.39 Body mass index [BMI] 39.0-39.9, adult
CPT/HCPCS: 36415; 81001; 82565; 82570; 83615; 84156; 84450; 84460; 84550; 85027; 86850; 86900; 86901; G0378; J7120

== ENCOUNTER 2020-05-31 13:18 | Outpatient (CLI) | payer BC, OTHER ==
[2020-05-31 14:39] LABS: Bilirubin,Urine NEG (Negative); Blood,Urine NEG (Negative); Color,Urine Yellow (Yellow); Mucus,Urine 1+ /HPF; Urobilinogen,Urine < 2.0 mg/dL (<2.0)
[2020-05-31] MEDS ORDERED: LACTATED RINGERS 1,000 ML IV SCH (15:00)
[2020-05-31 15:23] LABS: Alanine Aminotransferase 8 units/L (7-56); Uric Acid 5.9 mg/dL (3.5-7.6)
[2020-05-31 15:46] LABS: Hematocrit 27.6 % (30.3-42.9); Hemoglobin 8.9 gm/dl (10.1-14.3); Mean Corpuscular HGB Conc 32 % (30-34); Mean Corpuscular Volume 82 fl (79-97); Platelet Count 188 K/mm3 (140-440); Red Blood Count 3.36 M/mm3 (3.65-5.03); Red Cell Distribution Width 16.2 % (13.2-15.2)
[2020-05-31 16:32] VITALS: BP 131/75
== END 2020-05-31 16:40 | disposition home or self-care (01) ==
LOC: TRG 13:18 → APU 13:18 → TRG 16:40
PROVIDERS: ATTEND Obstetrics & Gynecology
DX: O13.3 Gestational [pregnancy-induced] hypertension without significant proteinuria, third trimester (principal); Z3A.37 37 weeks gestation of pregnancy
CPT/HCPCS: 36415; 59025; 81001; 82565; 83615; 84450; 84460; 84550; 85027